=== PATIENT | female | born 1985 | race Caucasian/White ===

== ENCOUNTER 2016-06-01 19:13 | Emergency (ER) | payer BC, MEDICAID ==
[2016-06-01] MEDS ORDERED: Amoxicillin 500 MG Cap PO ONE (21:04)
[2016-06-01] MEDS ORDERED: Acetaminophen/HYDROcodone 325-5 MG Tab PO ONE (21:04)
[2016-06-01 21:21] VITALS: BP 155/100
[2016-06-02] MEDS ORDERED: Nicotine 21 MG/24 Hr Patch TRDERM SCH (09:00)
--- NOTE | 2016-06-03 14:41 | ER ---
DATE SEEN: 06/01/2016 TIME SEEN: The patient was seen at 1935 hours. CHIEF COMPLAINT: Jaw pain, tooth #17. The tooth pain has gotten progressively worse in the last several days. This was not infectious, but causing marked pain as the crown has been sheared off and the dentin no longer have healthy yellow color but is very giordano and dark. It is obvious this dental problem has been present for some time. Gingiva to #17 is mildly tender. No deep space infection palpable in the neck or throat. No peritonsillar abscess. No palatal abscess. ALLERGIES: None. PREVIOUS SURGERY: . FAMILY HISTORY: Mother, brother, maternal grandmother have hypertension. Paternal grandfather has diabetes. Paternal grandmother has breast cancer. PHYSICAL EXAMINATION: GENERAL: Was alert, moderate pain. HEENT: 75% of the mesial crown is absent wwith giordano-brown dentin exposed. No deep space infection. No masseter pain or submandibular pain or mass noted. Pharynx is moist. TMs negative. No cervical adenopathy. NECK: Supple. LUNGS: Clear to auscultation without rales, rhonchi, or wheezes. HEART: S1 and S2. No murmur. ABDOMEN: Soft. No guarding. No abdominal discomfort. PROCEDURE: The patient's #17 tooth analgesia occurred with inferior alveolar nerve block resulting in immediate relief. The patient was dismissed on Amoxil 500 mg t.i.d., #20 tablets, also hydrocodone #8 tablets. For breakthrough pain, use hydrocodone. Otherwise, use Tylenol 1000 mg and ibuprofen 600 mg q.6 hours together. Ice packs to areas of pain. She is a smoker and NicoDerm patch and also Nicorette lozenges prescribed. Follow up with her dentist in this next week. DIAGNOSES: 1. Mesial fracture, crown tooth #17, with periapical abscess and marked pain. 2. Obesity. /[id number] LS/MODL /[id number] [facility]L [facility]
== END 2016-06-01 21:15 | disposition home or self-care (01) ==
LOC: FB.ED 19:13
DX: K03.81 Cracked tooth (principal); K04.7 Periapical abscess without sinus; F17.210 Nicotine dependence, cigarettes, uncomplicated; E66.9 Obesity, unspecified; Z68.38 Body mass index [BMI] 38.0-38.9, adult
CPT/HCPCS: 64400; 99283; A9270

== ENCOUNTER 2022-06-10 11:50 | Emergency (ER) | payer BC ==
[2022-06-10 12:17] VITALS: BP 226/132; PULSE 130
== END 2022-06-10 13:42 | disposition home or self-care (01) ==
LOC: FB.ED 11:50
DX: I10 Essential (primary) hypertension (principal); R79.89 Other specified abnormal findings of blood chemistry; E66.3 Overweight; Z68.41 Body mass index [BMI] 40.0-44.9, adult; Z87.891 Personal history of nicotine dependence; Z79.899 Other long term (current) drug therapy
CPT/HCPCS: 36415; 84443; 84484; 86140; 93010; 99284